=== PATIENT | male | born 1940 | race Asian ===

== ENCOUNTER 2022-12-08 06:27 | Day surgery (SDC) | payer MEDICARE, OTHER ==
[~2022-12-08] VITALS: Ht 167.6 cm; Wt 77.3 kg
[~2022-12-08 06:27] MED LIST: ALBU18HF12 IH; ALLO300T2 PEG; ASPI81TA39 PEG; BUDE0.5A IH; FAMO20 PEG; GLYC1TAB27 PEG; HYDR-4061 PEG; HYDR-4069 PEG; INSU100V SQ; INSU100V39 SQ; INSU100V52 SQ; IPRA3AMP24 NEB; IPRA4AER IH; LEVE100S7 PEG; MELA5TAB40 PEG; VALS1TAB77 PEG
[2022-12-08] MEDS ORDERED: LIDOCAINE 2% 11 ML JELLY TP ONE (06:28)
[2022-12-08] MEDS ORDERED: ALBUTEROL SULFATE 2.5 MG/0.5 ML NEB SOLUTION NEB ONE (06:28)
[2022-12-08] MEDS ORDERED: BENZOCAINE 20% 50 MCG/SPRAY 57 GM TP ONE (06:28)
[2022-12-08] MEDS ORDERED: LIDOCAINE 4% 50 ML SOLUTION TP ONE (06:28)
[2022-12-08] MEDS ORDERED: SODIUM CHLORIDE 0.9% 1,000 ML IV ONE (07:00)
[2022-12-08] MEDS ORDERED: SODIUM CHLORIDE 0.9% 1,000 ML ONE (07:22)
[2022-12-08] MEDS ORDERED: MIDAZOLAM HCL 2 MG/2 ML VIAL ONE (07:43)
[2022-12-08] MEDS ORDERED: FentaNYL CITRATE PF 100 MCG/2 ML VIAL ONE (07:43)
[2022-12-08] MEDS ORDERED: MethylPREDNISolone SOD SUCC 125 MG/2 ML VIAL ONE (08:44)
[2022-12-08] MEDS ORDERED: MethylPREDNISolone SOD SUCC 125 MG/2 ML VIAL IVP ONE (09:15)
== END 2022-12-08 14:50 | disposition home or self-care (01) ==
LOC: SURGERY 06:27
PROVIDERS: ATTEND Internal Medicine Critical Care Medicine
DX: J38.4 Edema of larynx (principal); B37.0 Candidal stomatitis; I10 Essential (primary) hypertension; Z93.0 Tracheostomy status; Z87.01 Personal history of pneumonia (recurrent); K21.9 Gastro-esophageal reflux disease without esophagitis; Z86.73 Personal history of transient ischemic attack (TIA), and cerebral infarction without residual deficits; E11.9 Type 2 diabetes mellitus without complications; M10.9 Gout, unspecified; Z79.899 Other long term (current) drug therapy; Z98.890 Other specified postprocedural states
CPT/HCPCS: 31623; 88112; 87206; 87101; 87220; 87070; 87186; 31624; 94640; 71045; 87015; J3010; J2250; J2930; Q9967; J7030; J7613; Z7610